=== PATIENT | male | born 1990 | race Caucasian/White ===

== ENCOUNTER 2017-06-09 08:29 | Emergency (ER) | payer SELFPAY ==
[2017-06-09 09:00] VITALS: BP 149/70; PULSE 84; RESP 20; TEMP 98; O2SAT 99; BMI 23.6
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
== END 2017-06-09 10:41 | disposition left against medical advice (07) ==
LOC: ED 08:29
DX: S00.81XA Abrasion of other part of head, initial encounter (principal); S01.102A Unspecified open wound of left eyelid and periocular area, initial encounter; Y04.0XXA Assault by unarmed brawl or fight, initial encounter; Y92.89 Other specified places as the place of occurrence of the external cause; Z91.19 Patient's noncompliance with other medical treatment and regimen